=== PATIENT | female | born 1955 | race Caucasian/White ===

== ENCOUNTER 2016-10-18 18:39 | Emergency (ER) | payer OTHER ==
--- NOTE | 2016-11-13 21:25 | ER ---
ADMIT: 10/18/2016 RM/LOC: ER [facility] MR#: [id number] [address] [id number] [address] [place] [address] Emergency Room Report SEX: F AGE: 61 : 1955 DATE: 10/18/2016 A 61-year-old female comes to the Emergency Department with complaints of vomiting, spontaneous onset and just not feeling well. See T-sheet for remainder of history and physical. Exam was significant for suprapubic tenderness. UA revealed 16 wbc's, leukocyte esterase 3+, white count was 10.9. Chemistries were significant for a glucose of 163. The patient was given a liter of fluid and Zofran, subsequently felt better, was discharged with diagnoses being; DIAGNOSES: Being vomiting, urinary tract infection. Given prescription for Cipro and Zofran. Instructed to follow up this week with her primary doctor. Kwaku Maurer MD/ li JOB #: [id number] CC: Emeka Cadet MD, Attending Physician Luba Christian MD, Family Physician
== END 2016-10-18 21:42 | disposition home or self-care (01) ==
LOC: ER 18:39
DX: N39.0 Urinary tract infection, site not specified (principal); I10 Essential (primary) hypertension; Z85.3 Personal history of malignant neoplasm of breast; Z90.13 Acquired absence of bilateral breasts and nipples